=== PATIENT | male | born 1960 | race Caucasian/White ===

== ENCOUNTER 2018-04-25 07:41 | Day surgery (SDC) | payer OTHER ==
[~2018-04-25 07:41] MED LIST: GLYXAMBI 25 MG1 EACH; LIPITOR40 MG; METOPROLOL TAR100 MG; NORVASC10 MG; RANITIDINE HCL300 MG; TRACOLIMUS
== END 2018-04-25 17:20 | disposition home or self-care (01) ==
LOC: CIR.AMB 07:41
DX: M17.11 Unilateral primary osteoarthritis, right knee (principal); S56.511A Strain of other extensor muscle, fascia and tendon at forearm level, right arm, initial encounter